=== PATIENT | male | born 1990 | race African-American/Black ===

== ENCOUNTER 2020-08-31 09:08 | Emergency (ER) | payer SELFPAY ==
[~2020-08-31] VITALS: Ht 185.4 cm; Wt 88.5 kg
--- NOTE | 2020-08-31 09:08 | NUR ---
Patient is seen using his personal cellphone while still on the [facility]'s shon, AOx4, HERRMANN, respiration:easy, skin warm & dry, denies any pains@the moment. Last seizure activity was about 2 years ago per patient and hx of seizure disorder since middle school years.
--- NOTE | 2020-08-31 09:15 | NUR ---
Patient brought by [facility] for a seizure that occurred [place] a park
[2020-08-31] MEDS ORDERED: TEGRETOL (09:18)
--- NOTE | 2020-08-31 09:32 | NUR ---
[email or web address], medical screening exam in progress
[2020-08-31] MEDS ORDERED: IBUPROFEN 800 MG TABLET PO ONE (10:00)
[2020-08-31] MEDS ORDERED: CARBAMAZEPINE 200 MG TABLET PO ONE (10:00)
[2020-08-31] MEDS ORDERED: CARBAMAZEPINE 200 MG TABLET ONE (10:04)
[2020-08-31] MEDS ORDERED: IBUPROFEN 800 MG TABLET ONE (10:05)
[2020-08-31 10:37] LABS: BASOPHILS % (AUTO) 0.6 % (0.0-2.0); EOSINOPHILS % (AUTO) 1.2 % (0.0-7.0); HEMATOCRIT 47.8 % (36.7-47.1); HEMOGLOBIN 15.8 g/dL (12.5-16.3); LYMPHOCYTES # (AUTO) 0.8 K/uL (20.0-40.0); LYMPHOCYTES % (AUTO) 19.1 % (20.5-51.5); MEAN CORPUSCULAR HEMOGLOBIN 29.1 uug (23.8-33.4); MEAN CORPUSCULAR HGB CONC 33 g/dL (32.5-36.3); MEAN CORPUSCULAR VOLUME 88.3 fL (73.0-96.2); MONOCYTES # (AUTO) 0.5 K/uL (2.0-10.0); MONOCYTES % (AUTO) 11.8 % (0.0-11.0); NEUTROPHILS # (AUTO) 2.8 K/uL (1.8-8.9); NEUTROPHILS % (AUTO) 67.3 % (38.5-71.5); PLATELET COUNT (AUTO) 257 K/uL (152-348); RED BLOOD CELL COUNT(AUTO) 5.41 MIL/uL (4.06-5.63); WHITE BLOOD COUNT (AUTO) 4.2 K/uL (3.6-10.2)
[2020-08-31 10:48] LABS: BILIRUBIN,DIRECT 0.2 mg/dL (0.0-0.2); BILIRUBIN,TOTAL 0.7 mg/dL (0.2-1.0); CREATININE 1.1 mg/dL (0.6-1.3); TOTAL PROTEIN, SERUM 7.2 g/dL (6.4-8.2)
--- NOTE | 2020-08-31 10:51 | NUR ---
Patient is resting comfortably on gurney with eyes closed, no seizure activity seen, pending results & disposition
--- NOTE | 2020-08-31 11:44 | NUR ---
IV removed. Catheter intact and site benign. Pressure and 4x4 gauze applied to site. No bleeding noted. Patient discharged to home in stable condition & steady gait. Written and verbal after care instructions given to patient and family. Patient & family verbalized understanding of instructions. Stressed follow up with neurologist and his primary doctor or return to ER for worsening s/s.
== END 2020-08-31 11:44 | disposition home or self-care (01) ==
LOC: ER 09:08
DX: G40.909 Epilepsy, unspecified, not intractable, without status epilepticus (principal)
CPT/HCPCS: 36415; 85025; A4663